=== PATIENT | female | born 1945 | race Caucasian/White ===

== ENCOUNTER 2021-01-23 11:37 | Inpatient (IN) | payer MEDICARE ==
[~2021-01-23] VITALS: Ht 167.6 cm; Wt 75.8 kg
--- NOTE | 2021-01-23 11:46 | NUR ---
PT BROUGHT IN BY [facility]RE WITH CHIEF COMPLAINT OF WORSENING COPD/SOB/WHEEZING/COUGH FOR 3 DAYS. [facility] EMS ADMINISTERED ALBUTEROL & DUONEB BREATHING TREATMENT.
[2021-01-23] MEDS ORDERED: IPRATROPIUM 0.5 MG/2.5 ML INHA NPPB ONE (12:30)
[2021-01-23] MEDS ORDERED: SODIUM CHLORIDE FLUSH 10ML SYR IVF ONE (12:30)
[2021-01-23] MEDS ORDERED: ALBUTEROL 0.5%, 20ML NPPB SCH (12:30)
[2021-01-23 13:08] LABS: BASOPHILS % (AUTO) 1 % (0-1); EOSINOPHILS % (AUTO) 8 % (1-7); LYMPHOCYTES % (AUTO) 25 % (22-44); MEAN CORPUSCULAR HEMOGLOBIN 30.2 pg (27.0-34.8); MEAN CORPUSCULAR HGB CONC 33.3 g/dL (32.4-35.8); MEAN PLATELET VOLUME 9.1 fL (7.4-10.4); MONOCYTES % (AUTO) 7 % (2-9); NEUTROPHILS % (AUTO) 59 % (42-75); PLATELET COUNT 272 x10^3/uL (130-400); RED BLOOD COUNT 4.28 x10^6/uL (3.82-5.3); RED CELL DISTRIBUTION WIDTH 13.7 % (9.6-15.2)
[2021-01-23 13:09] LABS: ALBUMIN 3.4 g/dL (3.4-5.0); ANION GAP 4 mmol/L (5-15); CHLORIDE 100 mmol/L (98-107)
[2021-01-23 13:15] LABS: ALANINE AMINOTRANSFERASE 22 U/L (12-78); ALKALINE PHOSPHATASE 72 U/L (45-117); BILIRUBIN,TOTAL 0.3 mg/dL (0.2-1.0); TOTAL PROTEIN 7.1 g/dL (6.4-8.2); TROPONIN I < 0.015 ng/mL (0.000-0.045)
[2021-01-23] MEDS ORDERED: POTASSIUM CHLORIDE 20 MEQ TAB.ER.PRT ONE (13:59)
[2021-01-23] MEDS ORDERED: IPRATROPIUM 0.5 MG/2.5 ML INHA ONE (13:59)
[2021-01-23] MEDS ORDERED: ALBUTEROL SULFATE 2.5 MG/3 ML ONE (13:59)
[2021-01-23] MEDS ORDERED: POTASSIUM CHLORIDE 20 MEQ TAB.ER.PRT PO ONE (14:00)
--- NOTE | 2021-01-23 15:12 | NUR ---
REPORT RECEIVED FROM COLTON LIZARRAGA. HOSPITALIST AT BEDSIDE. PER RT, KEEP O2 AT BASELINE NEEDS, 3L BY NC. SPO2 GOAL RANGE >88%
--- NOTE | 2021-01-23 15:19 | NUR ---
REPORT TO FLOOR RNFARSHAD
[2021-01-23 15:24] LABS: RAPID INFLUENZA A Negative (Negative); RAPID INFLUENZA B Negative (Negative)
[2021-01-23] MEDS ORDERED: methylPREDNISolone SOD SUCC 125 MG/2 ML IVPush ONE (15:30)
[2021-01-23] MEDS ORDERED: ENOXAPARIN 40 MG/0.4 ML SQ SCH (15:30)
[2021-01-23] MEDS ORDERED: ACETAMINOPHEN 650 MG SUPP PR PRN (15:30)
[2021-01-23] MEDS ORDERED: AZITHROMYCIN 500 MG TABLET PO ONE (15:30)
--- NOTE | 2021-01-23 15:45 | NUR ---
PT ASSISTED TO BEDSIDE COMMODE. PT W INCREASED WOB AND DESAT TO 82% WITH ACTIVITY. PT SWIFTLY RETURNED TO BASELINE RESPIRATORY EFFORT WITH RETURN TO [facility]. SPO2 REMAINS AT 3.5L BY ME. SPO2 NOW 93%, RR 25
[2021-01-23 16:43] VITALS: BP 155/78
[2021-01-23 18:12] VITALS: BP 155/78
[2021-01-23 19:46] VITALS: BP 142/74
[2021-01-23] MEDS ORDERED: ALBUTEROL/IPRATROPIUM 2.5MG/0.5MG, 3 ML ONE (21:11)
[2021-01-23] MEDS: ALBUTEROL-IPRATROPIUM MDI INH INH SCH (22:30)
[2021-01-23] MEDS ORDERED: BUDE10.2 INH (22:43)
[2021-01-23] MEDS ORDERED: IPRA12.9 INH (22:43)
[2021-01-23] MEDS ORDERED: OMEP20TA62 PO (22:43)
[2021-01-24 00:23] VITALS: BP 152/70
[2021-01-24] MEDS: DEXAMETHASONE 4 MG/ML, 5ML IVPush SCH ×2 (00:42→09:25)
[2021-01-24] MEDS: ACETAMINOPHEN 325 MG TABLET PO PRN ×3 (03:30→20:27)
[2021-01-24] MEDS: ALBUTEROL-IPRATROPIUM MDI INH INH SCH ×4 (05:56→20:27)
[2021-01-24 07:49] LABS: BASOPHILS % (AUTO) 0 % (0-1); EOSINOPHILS % (AUTO) 0 % (1-7); LYMPHOCYTES % (AUTO) 8 % (22-44); MEAN CORPUSCULAR HEMOGLOBIN 29.7 pg (27.0-34.8); MEAN CORPUSCULAR HGB CONC 32.7 g/dL (32.4-35.8); MEAN PLATELET VOLUME 8.9 fL (7.4-10.4); MONOCYTES % (AUTO) 1 % (2-9); NEUTROPHILS % (AUTO) 90 % (42-75); PLATELET COUNT 290 x10^3/uL (130-400); RED BLOOD COUNT 4.42 x10^6/uL (3.82-5.3); RED CELL DISTRIBUTION WIDTH 13.7 % (9.6-15.2)
[2021-01-24 07:54] VITALS: BP 145/76
[2021-01-24 07:54] LABS: ANION GAP 3 mmol/L (5-15); CALCIUM 9.6 mg/dL (8.5-10.1); CHLORIDE 98 mmol/L (98-107)
[2021-01-24 07:56] LABS: CREATININE 0.52 mg/dL (0.55-1.02)
[2021-01-24] MEDS: AZITHROMYCIN 500 MG TABLET PO SCH (09:25)
[2021-01-24 13:03] VITALS: BP 151/80
[2021-01-24] MEDS ORDERED: ENOXAPARIN 30 MG/0.3 ML SQ SCH (15:34)
[2021-01-24] MEDS: ENOXAPARIN 40 MG/0.4 ML SQ SCH (17:00)
[2021-01-24 19:19] VITALS: BP 136/83
[2021-01-24] MEDS: OMEPRAZOLE 20 MG CAPSULE.DR PO SCH (20:32)
[2021-01-25 01:21] VITALS: BP 143/85
[2021-01-25] MEDS: ALBUTEROL-IPRATROPIUM MDI INH INH SCH ×4 (05:55→20:38)
[2021-01-25] MEDS: OMEPRAZOLE 20 MG CAPSULE.DR PO SCH (05:55)
[2021-01-25] MEDS: AZITHROMYCIN 500 MG TABLET PO SCH (09:20)
[2021-01-25] MEDS: AMOXICILLIN 500 MG CAPSULE PO SCH ×2 (09:20→18:13)
[2021-01-25 09:23] VITALS: BP 154/85
[2021-01-25 15:59] VITALS: BP 154/89
[2021-01-25] MEDS: ENOXAPARIN 40 MG/0.4 ML SQ SCH (18:13)
[2021-01-25 19:17] VITALS: BP 114/69
[2021-01-25] MEDS ORDERED: [UNRECOGNIZED DRUG - OTHER] INH SCH (21:00)
[2021-01-26 00:55] VITALS: BP 129/80
[2021-01-26] MEDS: AMOXICILLIN 500 MG CAPSULE PO SCH ×4 (01:24→22:54)
[2021-01-26] MEDS: OMEPRAZOLE 20 MG CAPSULE.DR PO SCH (05:41)
[2021-01-26] MEDS: ALBUTEROL-IPRATROPIUM MDI INH INH SCH ×4 (05:42→22:55)
[2021-01-26 07:52] VITALS: BP 114/71
[2021-01-26] MEDS: AZITHROMYCIN 500 MG TABLET PO SCH (09:55)
[2021-01-26] MEDS: LORATADINE 10 MG TABLET PO SCH (11:00)
[2021-01-26] MEDS: ACETAMINOPHEN 325 MG TABLET PO PRN (11:00)
[2021-01-26 12:52] VITALS: BP 101/63
[2021-01-26] MEDS: FLUTICASONE NASAL SPRAY 16GM NAS SCH (16:34)
[2021-01-26] MEDS: SODIUM CHLORIDE NASAL SPRAY 45ML BOTTLE NAS PRN ×2 (16:34→18:51)
[2021-01-26] MEDS: ENOXAPARIN 40 MG/0.4 ML SQ SCH (17:32)
[2021-01-26 19:55] VITALS: BP 106/52
[2021-01-27 01:30] VITALS: BP 136/79
[2021-01-27] MEDS: OMEPRAZOLE 20 MG CAPSULE.DR PO SCH (05:29)
[2021-01-27] MEDS: ALBUTEROL-IPRATROPIUM MDI INH INH SCH ×4 (05:30→23:49)
[2021-01-27 07:10] VITALS: BP 109/56
[2021-01-27] MEDS: FLUTICASONE NASAL SPRAY 16GM NAS SCH (07:42)
[2021-01-27] MEDS: AZITHROMYCIN 500 MG TABLET PO SCH (07:43)
[2021-01-27] MEDS: LORATADINE 10 MG TABLET PO SCH (07:43)
[2021-01-27] MEDS: AMOXICILLIN 500 MG CAPSULE PO SCH ×2 (11:09→18:39)
[2021-01-27] MEDS: ACETAMINOPHEN 325 MG TABLET PO PRN ×2 (12:59→20:42)
[2021-01-27 13:40] VITALS: BP 113/67
[2021-01-27] MEDS: ENOXAPARIN 40 MG/0.4 ML SQ SCH (18:39)
[2021-01-27 20:36] VITALS: BP 115/73
[2021-01-28] MEDS: AMOXICILLIN 500 MG CAPSULE PO SCH ×3 (02:10→18:22)
[2021-01-28 02:13] VITALS: BP 115/73
[2021-01-28] MEDS: OMEPRAZOLE 20 MG CAPSULE.DR PO SCH (05:46)
[2021-01-28] MEDS: ALBUTEROL-IPRATROPIUM MDI INH INH SCH ×5 (05:49→20:46)
[2021-01-28] MEDS: AZITHROMYCIN 500 MG TABLET PO SCH (08:15)
[2021-01-28] MEDS: LORATADINE 10 MG TABLET PO SCH (08:15)
[2021-01-28] MEDS: ACETAMINOPHEN 325 MG TABLET PO PRN ×2 (08:15→15:05)
[2021-01-28] MEDS: FLUTICASONE NASAL SPRAY 16GM NAS SCH (08:18)
[2021-01-28 08:27] VITALS: BP 128/76
[2021-01-28 08:56] LABS: CREATININE 0.45 mg/dL (0.55-1.02)
[2021-01-28 14:10] VITALS: BP 102/68
[2021-01-28] MEDS: ENOXAPARIN 40 MG/0.4 ML SQ SCH (18:23)
[2021-01-28 20:41] VITALS: BP 102/52
[2021-01-29] MEDS: ACETAMINOPHEN 325 MG TABLET PO PRN ×2 (00:38→07:45)
[2021-01-29 01:50] VITALS: BP 122/77
[2021-01-29] MEDS: AMOXICILLIN 500 MG CAPSULE PO SCH ×3 (02:41→17:13)
[2021-01-29] MEDS: ALBUTEROL-IPRATROPIUM MDI INH INH SCH ×4 (04:45→20:47)
[2021-01-29] MEDS: OMEPRAZOLE 20 MG CAPSULE.DR PO SCH (04:45)
[2021-01-29 07:05] VITALS: BP 146/69
[2021-01-29] MEDS: AZITHROMYCIN 500 MG TABLET PO SCH (07:45)
[2021-01-29] MEDS: LORATADINE 10 MG TABLET PO SCH (07:45)
[2021-01-29] MEDS: FLUTICASONE NASAL SPRAY 16GM NAS SCH (07:46)
[2021-01-29 13:55] LABS: MICROSCOPIC AUTO
[2021-01-29 14:07] VITALS: BP 130/83
[2021-01-29] MEDS: ENOXAPARIN 40 MG/0.4 ML SQ SCH (17:14)
[2021-01-29 19:19] VITALS: BP 120/61
[2021-01-30] MEDS: AMOXICILLIN 500 MG CAPSULE PO SCH ×2 (02:40→09:41)
[2021-01-30 03:00] VITALS: BP 111/71
[2021-01-30] MEDS: ALBUTEROL-IPRATROPIUM MDI INH INH SCH ×2 (06:00→10:14)
[2021-01-30] MEDS: OMEPRAZOLE 20 MG CAPSULE.DR PO SCH (06:16)
[2021-01-30 07:31] VITALS: BP 124/72
[2021-01-30] MEDS: LORATADINE 10 MG TABLET PO SCH (08:16)
[2021-01-30] MEDS: AZITHROMYCIN 500 MG TABLET PO SCH (08:16)
[2021-01-30] MEDS: FLUTICASONE NASAL SPRAY 16GM NAS SCH (08:17)
[2021-01-30] MEDS ORDERED: FLUT16SP24 NAS (09:39)
[2021-01-30] MEDS ORDERED: LORA-247 PO (09:39)
[2021-01-30] MEDS ORDERED: AMOX-291 PO (09:39)
[2021-01-30] MEDS ORDERED: ALPR0.254 PO (09:39)
[2021-01-30] MEDS ORDERED: OMEP-110 PO (09:39)
[2021-01-30] MEDS ORDERED: SODI44SP NAS (09:39)
[2021-01-30] MEDS ORDERED: TRAM50TA2 PO (09:39)
[2021-01-30 14:56] VITALS: BP 127/75
== END 2021-01-30 16:05 | disposition hospice, home (50) | DRG 189 ==
LOC: ED 13:49 → 4EST 14:38
PROVIDERS: ADMIT Internal Medicine; ATTEND Internal Medicine
DX: J96.21 Acute and chronic respiratory failure with hypoxia (principal); J44.1 Chronic obstructive pulmonary disease with (acute) exacerbation; E46 Unspecified protein-calorie malnutrition; R64 Cachexia; J96.22 Acute and chronic respiratory failure with hypercapnia; K04.7 Periapical abscess without sinus; E87.6 Hypokalemia; F19.10 Other psychoactive substance abuse, uncomplicated; F41.9 Anxiety disorder, unspecified; Z51.5 Encounter for palliative care; Z66 Do not resuscitate; Z87.891 Personal history of nicotine dependence; Z99.81 Dependence on supplemental oxygen; Z68.27 Body mass index [BMI] 27.0-27.9, adult
CPT/HCPCS: 36415; 36600; 70100; 71045; 80048; 80053; 81001; 82565; 82803; 83605; 83880; 84484; 85025; 87040; 87400; 93005; 96374; G0378; J1100; J1650; J7644; U0005; J2930; U0003